=== PATIENT | female | born 1980 | race Caucasian/White ===

== ENCOUNTER 2016-12-12 15:07 | Emergency (ER) | payer BC ==
--- NOTE | 2016-12-12 15:30 | EDM.PDOC ---
ED HPI ENT - General Chief Complaint: ENT Problem Stated Complaint: POSS DOUBLE EAR INFECTION Time Seen by Provider: 12/12/16 15:16 Source of Information: Reports: Patient History Limitations: Reports: No limitations - History of Present Illness INITIAL COMMENTS - FREE TEXT/NARRATIVE: The patient presents with bilateral ear pain. This started yesterday. She had sinus pressure and fullness first and now it went into her ears. She will get a bad ear infection a couple times per year. She plans on seeing an ENT eventually. She has fever and chills. She has no sore throat. Timing/Duration: Reports: Day(s): (Yesterday) Severity: severe Location: Reports: right nares, left nares Quality: Reports: Sharp Improves with: Reports: None Worsens with: Reports: None Associated Symptoms: Reports: no other symptoms - Related Data Allergies/ADRs: Allergies Allergy/AdvReac Type Severity Reaction Status Date / Time Latex, Natural Rubber Allergy Rash Verified 12/12/16 15:25 Penicillins Allergy Rash Verified 12/12/16 15:23 pseudoephedrine Allergy Tachycardia Verified 12/12/16 15:25 [From Sudafed] Home Meds: Home Meds Cefdinir [Omnicef] 300 mg PO BID #20 cap 12/12/16 [Rx] Cetirizine [ZyrTEC] 1 tab PO DAILY PRN 12/12/16 [History] Ofloxacin [Floxin 0.3% Otic Soln] 1 drop EARBOTH BID #1 bottle 12/12/16 [Rx] ED ROS ENT - Review of Systems Review Of Systems: See Below Constitutional: Reports: fever, chills HEENT: Reports: Ear pain. Denies: Throat pain Respiratory: Reports: no symptoms Cardiovascular: Reports: No symptoms Endocrine: Reports: no symptoms GI/Abdominal: Reports: No symptoms : Reports: no symptoms Musculoskeletal: Reports: no symptoms Skin: Reports: no symptoms ED EXAM, ENT - Physical Exam Exam: See Below Exam Limited By: No limitations General Appearance: alert, no apparent distress Ears: normal external exam, TM erythema (severe to the left TM but the right looks good), other (Left canal has erythema and edema with some mild erythema to the right canal.) Nose: normal inspection Mouth/Throat: Normal inspection Head: atraumatic, normocephalic Neck: normal inspection Respiratory/Chest: no respiratory distress, lungs clear, normal breath sounds Cardiovascular: regular rate, rhythm, no edema, no murmur GI/Abdominal: soft, non tender, no organomegaly Back: normal inspection Extremities: normal inspection Neurological: alert, oriented, no motor/sensory deficits Course - Vital Signs Last Recorded V/S: Last Vital Signs Temp 97.7 F 12/12/16 15:15 Pulse 76 12/12/16 15:15 Resp 16 12/12/16 15:15 BP 135/73 12/12/16 15:15 Pulse Ox 98 12/12/16 15:15 Departure - Departure Time of Disposition: 15:35 Disposition: Home, Self-Care 01 Condition: good Clinical Impression: Otitis media Qualifiers: Otitis media type: serous Laterality: left Chronicity: acute Recurrence: recurrent Qualified Code(s): H65.05 - Acute serous otitis media, recurrent, left ear Otitis externa Qualifiers: Otitis externa type: unspecified type Laterality: bilateral Chronicity: acute Qualified Code(s): H60.503 - Unspecified acute noninfective otitis externa, bilateral Prescriptions: Cefdinir [Omnicef] 300 mg PO BID #20 cap Ofloxacin [Floxin 0.3% Otic Soln] 1 drop EARBOTH BID #1 bottle Referrals: Gary Sarah [Physician] - 1 Week Forms: ED Department Discharge Additional Instructions: Take the medication as prescribed. Take tylenol or motrin for pain. Please return if you are worse.
== END 2016-12-12 15:46 | disposition home or self-care (01) ==
LOC: JD.ED 15:07
CPT/HCPCS: 99283